=== PATIENT | female | born 1980 | race Caucasian/White ===

== ENCOUNTER 2018-09-17 16:34 | Emergency (ER) | payer BC, OTHER ==
[2018-09-17 16:56] VITALS: BP 93/67
--- NOTE | 2018-09-17 17:11 | UC ---
GI Bleed HPI - HPI Summary HPI Summary: Patient just got back from [place] last night, started having diarrhea 2 days ago , now it is constant and watery. she is able to do PO hydration without difficulty. yesterday was very crampy but today she does not have stomach pain but persistant diarrhea. denies any fever or respiratory illness - History Of Current Complaint Chief Complaint: UCGI Stated Complaint: DIARRHEA, AND WEIGHT LOSS Time Seen by Provider: 09/17/18 16:42 Hx Obtained From: Patient Hx Last Menstrual Period: 09/12/18 ?: No Onset/Duration: Sudden Onset, Lasting Days Timing: Constant Severity Initially: Moderate Severity Currently: Moderate Pain Intensity: 4 Associated Pain: Diffuse Character: Cramping - Allergies/Home medications Allergies/Adverse Reactions: Allergies Allergy/AdvReac Type Severity Reaction Status Date / Time No Known Allergies Allergy Verified 09/17/18 16:43 Home Medications: Home Medications Iron 20 mg PO DAILY 09/17/18 [History Confirmed 09/17/18] Loperamide CAP* [Imodium CAP*] 2 mg PO Q4H PRN 09/17/18 [History Confirmed 09/17] PMH/Surg Hx/FS Hx/Imm Hx Previously Healthy: Yes - Surgical History Surgical History: None - Family History Known Family History: Negative: Cardiac Disease, Hypertension - Social History Alcohol Use: None Substance Use Type: None Smoking Status (MU): Never Smoked Tobacco Review of Systems All Other Systems Reviewed And Are Negative: Yes Constitutional: Positive: Fatigue Gastrointestinal: Positive: Diarrhea Is Patient Immunocompromised?: No Physical Exam Triage Information Reviewed: Yes Vital Signs: Initial Vital Signs Temp 98.2 F 09/17/18 16:47 Pulse 79 09/17/18 16:47 Resp 16 09/17/18 16:47 BP 93/67 09/17/18 16:47 Pulse Ox 97 09/17/18 16:47 Vital Signs Reviewed: Yes Eye Exam: Normal ENT Exam: Normal Dental Exam: Normal Neck exam: Normal Respiratory Exam: Normal Respiratory: Positive: Chest non-tender, Lungs clear, Normal breath sounds Cardiovascular Exam: Normal Cardiovascular: Positive: RRR, No Murmur, Pulses Normal Abdomen Description: Positive: Nontender, No Organomegaly, Soft, CVA Tenderness (R) - neg, CVA Tenderness (L) - neg Bowel Sounds: Positive: Present Musculoskeletal Exam: Normal Neurological Exam: Normal Psychological Exam: Normal Skin Exam: Normal Bleed Course/Dx - Course Course Of Treatment: hx obtained, exam performed ,meds reviewed, stool sample obtained. advised to continue to push PO hydration and eat as tolerated. - Differential Dx/Diagnosis Differential Diagnosis/HQI/PQRI: Diverticulitis, Gastritis, Other - travelers diarrhea Provider Diagnosis: Travel-related illness, Diarrhea, Strep pharyngitis Discharge - Sign-Out/Discharge Documenting (check all that apply): Patient Departure All imaging exams completed and their final reports reviewed: No Studies - Discharge Plan Condition: Stable Disposition: HOME Prescriptions: Amoxicillin/Clavulanate TAB* [Augmentin TAB 875*] 875 mg PO BID #19 tab Patient Education Materials: Traveler's Diarrhea (ED) Referrals: Jeri Glasgow MD [Primary Care Provider] - Additional Instructions: 1. continue to push clear fluids, 2.take the antibiotic as prescribed. 3. - Billing Disposition and Condition Condition: STABLE Disposition: Home
[2018-09-17] MEDS ORDERED: Amoxicillin/Clavulanate TAB* 875 MG PO ONE (17:35)
== END 2018-09-17 18:10 | disposition home or self-care (01) ==
LOC: UCEAST 16:34
DX: R19.7 Diarrhea, unspecified (principal); J02.0 Streptococcal pharyngitis; R10.9 Unspecified abdominal pain; R53.83 Other fatigue
CPT/HCPCS: 87651; 99212; A9270-GY; G0463